=== PATIENT | male | born 1995 | race American Indian/Alaskan Native ===

== ENCOUNTER 2020-05-23 08:55 | Emergency (ER) | payer OTHER ==
[2020-05-23 09:01] VITALS: BP 138/87
--- NOTE | 2020-05-23 10:27 | Emergency Department Report ---
ED ENT HPI - General Chief complaint: Earache Stated complaint: LEFT EAR PAIN Time Seen by Provider: 05/23/20 10:22 Source: patient Mode of arrival: Ambulatory Limitations: No Limitations - History of Present Illness Initial comments: This is a 25-year-old male nontoxic well in appearance with no signs of distress presents to the ED with complaint of left earache. Patient denies any hearing loss. Denies any mastoid tenderness. Agrees to tragus pain. Denies any fever, chills, headache, nausea, vomiting, chest pain or SOB. Denies any other compla ints. Denies any allergies. MD complaint: ear pain -: days(s) Location: L ear Severity: mild Severity scale (0 -10): 8 Quality: aching Consistency: constant Improves with: none Worsens with: none Associated Symptoms: denies: fever, cough, gum swelling, toothache, pain with swallowing, sore throat, tinnitus, hearing loss, discharge from ear, rhinorrhea - Related Data Previous Rx's Medication Instructions Recorded Last Taken Type Amoxicillin/K Clav Tab [Augmentin 1 tab PO Q12HR #20 tab 05/23/20 Unknown Rx 875 mg] Ciprofloxacin HCl/Dexameth 2 drop BID #7.5 ml 05/23/20 Unknown Rx [Ciprodex Otic Suspension] Allergies Allergy/AdvReac Type Severity Reaction Status Date / Time shellfish derived Allergy Shortness Verified 05/23/20 09:01 of Breath ED Dental HPI - General Chief complaint: Earache Stated complaint: LEFT EAR PAIN Time Seen by Provider: 05/23/20 10:22 - Related Data Previous Rx's Medication Instructions Recorded Last Taken Type Amoxicillin/K Clav Tab [Augmentin 1 tab PO Q12HR #20 tab 05/23/20 Unknown Rx 875 mg] Ciprofloxacin HCl/Dexameth 2 drop BID #7.5 ml 05/23/20 Unknown Rx [Ciprodex Otic Suspension] Allergies Allergy/AdvReac Type Severity Reaction Status Date / Time shellfish derived Allergy Shortness Verified 05/23/20 09:01 of Breath ED Review of Systems ROS: Stated complaint: LEFT EAR PAIN Other details as noted in HPI Constitutional: denies: chills, fever Eyes: eye pain. denies: eye discharge, vision change ENT: denies: ear pain, throat pain Respiratory: denies: cough, shortness of breath, wheezing Cardiovascular: denies: chest pain, palpitations Endocrine: no symptoms reported Gastrointestinal: denies: abdominal pain, nausea, diarrhea Genitourinary: denies: urgency, dysuria Musculoskeletal: denies: back pain, joint swelling, arthralgia Skin: denies: rash, lesions Neurological: denies: headache, weakness, paresthesias Psychiatric: denies: anxiety, depression Hematological/Lymphatic: denies: easy bleeding, easy bruising ED Past Medical Hx - Past Medical History Previous Medical History?: No - Surgical History Past Surgical History?: No - Social History Smoking Status: Current Some Day Smoker Substance Use Type: Marijuana - Medications Home Medications: Home Medications Medication Instructions Recorded Confirmed Last Taken Type Amoxicillin/K Clav Tab [Augmentin 1 tab PO Q12HR #20 tab 05/23/20 Unknown Rx 875 mg] Ciprofloxacin HCl/Dexameth 2 drop BID #7.5 ml 05/23/20 Unknown Rx [Ciprodex Otic Suspension] ED Physical Exam - General Limitations: No Limitations General appearance: alert, in no apparent distress - Head Head exam: Present: atraumatic, normocephalic - Expanded ENT Exam Expanded Ear exam: Present: normal external inspection TM/Canal exam: Erythema: Left TM, Bulging: Left TM Mouth exam: Present: normal external inspection Teeth exam: Present: normal inspection Throat exam: Positive: normal inspection - Neck Neck exam: Present: normal inspection, full ROM. Absent: tenderness, meningismus, lymphadenopathy - Extremities Exam Extremities exam: Present: full ROM - Back Exam Back exam: Present: full ROM - Neurological Exam Neurological exam: Present: alert, oriented X3, normal gait - Psychiatric Psychiatric exam: Present: normal affect, normal mood - Skin Skin exam: Present: warm, dry, intact, normal color. Absent: rash - Other Other exam information: Positive tragus tenderness. ED Course Vital Signs 05/23/20 08:59 Temperature 98.9 F Pulse Rate 95 H Respiratory 20 Rate Blood Pressure 138/87 - Reevaluation(s) Reevaluation #1: 05/23/20 10:24 Patient is speaking in full sentences with no signs of distress noted. ED Medical Decision Making - Medical Decision Making Patient was instructed to Follow-up with a primary care doctor in 3-5 days or if symptoms worsen and continue return to emergency room as soon as possible. At time of discharge, the patient does not seem toxic or ill in appearance. No acute signs of distress noted. Patient agrees to discharge treatment plan of care. No further questions noted by the patient. Critical care attestation.: If time is entered above; I have spent that time in minutes in the direct care of this critically ill patient, excluding procedure time. ED Disposition Clinical Impression: Left otitis media Qualifiers: Otitis media type: unspecified Qualified Code(s): H66.92 - Otitis media, unspecified, left ear Left otitis externa Qualifiers: Otitis externa type: unspecified type Chronicity: acute Qualified Code(s): H60.502 - Unspecified acute noninfective otitis externa, left ear Disposition: TO HOME OR SELFCARE Is pt being admited?: No Does the pt Need Aspirin: No Condition: Stable Instructions: Otitis Media (ED), Otitis Externa (ED) Additional Instructions: Follow-up with a primary care doctor in 3-5 days or if symptoms worsen and continue return to emergency room as soon as possible. Prescriptions: Amoxicillin/K Clav Tab [Augmentin 875 mg] 1 tab PO Q12HR #20 tab Ciprofloxacin HCl/Dexameth [Ciprodex Otic Suspension] 2 drop BID #7.5 ml Referrals: PRIMARY CAREMD [Primary Care Provider] - 3-5 Days LIS ALARCON MD [Staff Physician] - 3-5 Days Forms: Work/School Release Form(ED)
== END 2020-05-23 11:50 | disposition home or self-care (01) ==
LOC: ED 08:55
DX: H66.92 Otitis media, unspecified, left ear (principal); H60.502 Unspecified acute noninfective otitis externa, left ear; F17.200 Nicotine dependence, unspecified, uncomplicated; F12.10 Cannabis abuse, uncomplicated
CPT/HCPCS: 99282

== ENCOUNTER 2020-11-02 17:44 | Emergency (ER) | payer OTHER ==
[2020-11-02 18:03] VITALS: BP 114/60
--- NOTE | 2020-11-02 19:24 | Emergency Department Report ---
ED General Adult HPI - General Chief complaint: Extremity Injury, Lower Stated complaint: LT BIG TOE PAIN Time Seen by Provider: 11/02/20 19:04 Source: patient Mode of arrival: Ambulatory Limitations: No Limitations - History of Present Illness Initial comments: Patient 25-year-old male who presents for left great toe pain and swelling with erythema x3 days. Patient has history of ingrown toenail same. States yellow- brown Pus prior to arrival. 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 States frequent ingrown toenails. Pain described 5/10 aching soreness exacerbated by weightbearing. Pain is relieved by nothing tried. There is been no fevers or chills - Related Data Previous Rx's Medication Instructions Recorded Last Taken Type Amoxicillin/K Clav Tab [Augmentin 1 tab PO Q12HR #20 tab 05/23/20 Unknown Rx 875 mg] Ciprofloxacin HCl/Dexameth 2 drop BID #7.5 ml 05/23/20 Unknown Rx [Ciprodex Otic Suspension] cephALEXin [Keflex] 500 mg PO Q8HR 7 Days #21 cap 11/02/20 Unknown Rx traMADoL [Ultram] 50 mg PO Q6HR PRN #12 tablet 11/02/20 Unknown Rx Allergies Allergy/AdvReac Type Severity Reaction Status Date / Time shellfish derived Allergy Shortness Verified 05/23/20 09:01 of Breath ED Review of Systems ROS: Stated complaint: LT BIG TOE PAIN Other details as noted in HPI Constitutional: denies: chills, fever Eyes: denies: eye pain, eye discharge, vision change ENT: denies: ear pain, throat pain Respiratory: denies: cough, shortness of breath, wheezing Cardiovascular: denies: chest pain, palpitations Endocrine: no symptoms reported Gastrointestinal: as per HPI Genitourinary: denies: urgency, dysuria Musculoskeletal: other (left great toe pain and swelling ) Skin: other (left ingrown toe nail ) Neurological: denies: headache, weakness, paresthesias Psychiatric: denies: anxiety, depression Hematological/Lymphatic: as per HPI ED Past Medical Hx - Social History Smoking Status: Never Smoker Substance Use Type: None - Medications Home Medications: Home Medications Medication Instructions Recorded Confirmed Last Taken Type Amoxicillin/K Clav Tab [Augmentin 1 tab PO Q12HR #20 tab 05/23/20 Unknown Rx 875 mg] Ciprofloxacin HCl/Dexameth 2 drop BID #7.5 ml 05/23/20 Unknown Rx [Ciprodex Otic Suspension] cephALEXin [Keflex] 500 mg PO Q8HR 7 Days #21 cap 11/02/20 Unknown Rx traMADoL [Ultram] 50 mg PO Q6HR PRN #12 tablet 11/02/20 Unknown Rx ED Physical Exam - General Limitations: No Limitations General appearance: alert, in no apparent distress - Head Head exam: Present: atraumatic, normocephalic - Eye Eye exam: Present: normal appearance - ENT ENT exam: Present: mucous membranes moist - Neck Neck exam: Present: normal inspection - Respiratory Respiratory exam: Present: normal lung sounds bilaterally. Absent: respiratory distress - Cardiovascular Cardiovascular Exam: Present: regular rate - GI/Abdominal GI/Abdominal exam: Present: soft, normal bowel sounds. Absent: distended, tenderness - Rectal Rectal exam: Present: deferred - Extremities Exam Extremities exam: Present: normal inspection, full ROM, tenderness (left great toe ), normal capillary refill - Expanded Lower Extremity Exam Left Foot/Toe exam: Present: tenderness, swelling, erythema (left great toe nail ). Absent: nail avulsion, subungual hematoma Neuro vascular tendon exam: Absent: pulse deficit, motor deficit, sensory deficit, tendon deficit Gait: Positive: observed and normal - Back Exam Back exam: Present: normal inspection - Neurological Exam Neurological exam: Present: alert - Psychiatric Psychiatric exam: Present: normal affect, normal mood - Skin Skin exam: Present: warm, dry, intact, erythema (left great toe ). Absent: rash ED Course Vital Signs 11/02/20 18:00 Temperature 98.1 F Pulse Rate 73 Respiratory 18 Rate Blood Pressure 114/60 O2 Sat by Pulse 97 Oximetry - I & D Left Toe Type of Procedure: Simple (Left great toe ingrown toenail with erythema and purulent drainage.) Site: left great toe nail Blade Size: 11 I & D Procedure: betadine prep Progress: ite cleaned with Betadine solution anesthesia with 1% lidocaine x2 cc, anesthesia achieved, left lateral nail incision and partial removal nailbed probe with sterile cotton swab toe irrigated with 10 cc sterile saline partial nail removed intact moderate purulent bloody drainage. Sterile dressing applied. Distal pulses intact. Patient given follow-up and wound care instructions. Follow-up primary care provider in 2 to 3 days , all bleeders controlled, patient tolerated procedure with minimal distress. ED Medical Decision Making - Medical Decision Making ingrown toe nail left great, dc to home with rx, pt will follow up with pcp in 2 days for wound check, given wound care instructions, pt dc to home in stable condition at this time. Critical care attestation.: If time is entered above; I have spent that time in minutes in the direct care of this critically ill patient, excluding procedure time. ED Disposition Clinical Impression: Ingrown nail of great toe of left foot, Cellulitis of toe of left foot Disposition: DC-01 TO HOME OR SELFCARE Is pt being admited?: No Does the pt Need Aspirin: No Condition: Stable Instructions: Cellulitis, Adult, Fingernail or Toenail Removal, Adult, Care After Prescriptions: cephALEXin [Keflex] 500 mg PO Q8HR 7 Days #21 cap traMADoL [Ultram] 50 mg PO Q6HR PRN #12 tablet PRN Reason: Pain Referrals: ABDULAZIZ PAEZ MD [Staff Physician] - 3-5 Days Forms: Work/School Release Form(ED) Time of Disposition: 19:26
== END 2020-11-02 19:30 | disposition home or self-care (01) ==
LOC: ED 17:44
DX: L03.032 Cellulitis of left toe (principal); L60.0 Ingrowing nail; Z91.013 Allergy to seafood; Z79.899 Other long term (current) drug therapy

== ENCOUNTER 2020-12-09 20:06 | Emergency (ER) | payer OTHER ==
[2020-12-09 21:09] VITALS: BP 134/84
[2020-12-09] MEDS ORDERED: IBUPROFEN 800 MG TAB PO ONE (21:11)
[2020-12-09] MEDS ORDERED: AMOXICILLIN/K CLAV 875/125MG TAB PO ONE (21:11)
[2020-12-09] MEDS ORDERED: predniSONE 20 MG TAB PO ONE (21:11)
--- NOTE | 2020-12-09 21:19 | Emergency Department Report ---
ED General Adult HPI - General Chief complaint: Sore Throat Stated complaint: THROAT PAIN Time Seen by Provider: 12/09/20 21:11 Source: patient Mode of arrival: Ambulatory Limitations: No Limitations - History of Present Illness Initial comments: Pt is a 25 y/o aam who presents for sore throat x 3 days, hx of same recurring, pt states 5/10 throat pain exacerbated by swallowing, pain is relieved by nothging tride, there is no wheezing, no stridor. pt is tolerating po intake, states fever today of 102. pt denies sob, no cp, no dizziness, no lightheaded. - Related Data Previous Rx's Medication Instructions Recorded Last Taken Type Amoxicillin/K Clav Tab [Augmentin 1 tab PO Q12HR #20 tab 05/23/20 Unknown Rx 875 mg] Ciprofloxacin HCl/Dexameth 2 drop BID #7.5 ml 05/23/20 Unknown Rx [Ciprodex Otic Suspension] cephALEXin [Keflex] 500 mg PO Q8HR 7 Days #21 cap 11/02/20 Unknown Rx traMADoL [Ultram] 50 mg PO Q6HR PRN #12 tablet 11/02/20 Unknown Rx Amoxicillin/Potassium Clav 1 each PO BID 7 Days #14 tablet 12/09/20 Unknown Rx [Augmentin 875-125 Tablet] Ibuprofen [Motrin 800 MG tab] 800 mg PO Q8HR PRN #30 tablet 12/09/20 Unknown Rx predniSONE [Deltasone] 40 mg PO QDAY 5 Days #10 tab 12/09/20 Unknown Rx Allergies Allergy/AdvReac Type Severity Reaction Status Date / Time shellfish derived Allergy Shortness Verified 05/23/20 09:01 of Breath ED Review of Systems ROS: Stated complaint: THROAT PAIN Other details as noted in HPI Constitutional: fever. denies: chills Eyes: as per HPI ENT: throat pain. denies: ear pain, congestion Respiratory: denies: cough, shortness of breath, wheezing Cardiovascular: denies: chest pain, palpitations Endocrine: no symptoms reported Gastrointestinal: denies: abdominal pain, nausea, diarrhea Genitourinary: denies: urgency, dysuria Musculoskeletal: denies: back pain, joint swelling, arthralgia Skin: denies: rash, lesions Neurological: denies: headache, weakness, paresthesias Psychiatric: denies: anxiety, depression Hematological/Lymphatic: denies: easy bleeding, easy bruising ED Past Medical Hx - Past Medical History Previous Medical History?: No - Surgical History Past Surgical History?: No - Social History Smoking Status: Never Smoker Substance Use Type: None - Medications Home Medications: Home Medications Medication Instructions Recorded Confirmed Last Taken Type Amoxicillin/K Clav Tab [Augmentin 1 tab PO Q12HR #20 tab 05/23/20 Unknown Rx 875 mg] Ciprofloxacin HCl/Dexameth 2 drop BID #7.5 ml 05/23/20 Unknown Rx [Ciprodex Otic Suspension] cephALEXin [Keflex] 500 mg PO Q8HR 7 Days #21 cap 11/02/20 Unknown Rx traMADoL [Ultram] 50 mg PO Q6HR PRN #12 tablet 11/02/20 Unknown Rx Amoxicillin/Potassium Clav 1 each PO BID 7 Days #14 tablet 12/09/20 Unknown Rx [Augmentin 875-125 Tablet] Ibuprofen [Motrin 800 MG tab] 800 mg PO Q8HR PRN #30 tablet 12/09/20 Unknown Rx predniSONE [Deltasone] 40 mg PO QDAY 5 Days #10 tab 12/09/20 Unknown Rx ED Physical Exam - General Limitations: No Limitations General appearance: alert, in no apparent distress - Head Head exam: Present: atraumatic, normocephalic - Eye Eye exam: Present: EOMI Pupils: Present: normal accommodation - ENT ENT exam: Present: mucous membranes moist, TM's normal bilaterally, normal external ear exam - Expanded ENT Exam Expanded Throat exam: Positive: tonsillar erythema, tonsillomegaly, tonsillar exudate, other (uvula midline no stridor, no wheezing ). Negative: R peritonsillar mass, L peritonsillar mass - Neck Neck exam: Present: normal inspection, tenderness, full ROM, lymphadenopathy. Absent: meningismus, thyromegaly - Expanded Neck Exam Expanded Neck exam: Absent: midline deformity, anterior neck swelling, carotid bruit, tracheal deviation - Respiratory Respiratory exam: Present: normal lung sounds bilaterally. Absent: respiratory distress, wheezes, stridor, chest wall tenderness - Cardiovascular Cardiovascular Exam: Present: normal rhythm, tachycardia, normal heart sounds - GI/Abdominal GI/Abdominal exam: Present: soft, normal bowel sounds. Absent: distended, tenderness, guarding, rebound, rigid, bruit, hernia - Rectal Rectal exam: Present: deferred - Extremities Exam Extremities exam: Present: normal inspection - Back Exam Back exam: Present: normal inspection, full ROM. Absent: CVA tenderness (R), CVA tenderness (L) - Neurological Exam Neurological exam: Present: alert, oriented X3, CN II-XII intact, normal gait, motor sensory deficit, reflexes normal - Expanded Neurological Exam Expanded Patient oriented to: Present: person, place, time Speech: Present: fluid speech Best Eye Response (Jose): (4) open spontaneously Best Motor Response (Rheems): (6) obeys commands Best Verbal Response (Jose): (5) oriented Jose Total: 15 - Psychiatric Psychiatric exam: Present: normal affect, normal mood - Skin Skin exam: Present: warm, dry, intact, normal color. Absent: rash ED Course Vital Signs 12/09/20 21:06 Temperature 102.2 F H Pulse Rate 119 H Respiratory 18 Rate Blood Pressure 134/84 O2 Sat by Pulse 99 Oximetry ED Medical Decision Making - Medical Decision Making pt declines IV hydrate, exam consistent with strep throat , aiway is patent pt is toleating po intake, give rx, and tx in ed, augmentin, prednisone, ibuprofen, will dc with rx for same , pt will follow up with pcp in 2-3 days, return to ed if symptoms worsen. Critical care attestation.: If time is entered above; I have spent that time in minutes in the direct care of this critically ill patient, excluding procedure time. ED Disposition Clinical Impression: Pharyngitis Qualifiers: Pharyngitis/tonsillitis etiology: unspecified etiology Qualified Code(s): J02.9 - Acute pharyngitis, unspecified Disposition: DC-01 TO HOME OR SELFCARE Is pt being admited?: No Does the pt Need Aspirin: No Condition: Stable Instructions: Pharyngitis Prescriptions: Amoxicillin/Potassium Clav [Augmentin 875-125 Tablet] 1 each PO BID 7 Days #14 tablet predniSONE [Deltasone] 40 mg PO QDAY 5 Days #10 tab Ibuprofen [Motrin 800 MG tab] 800 mg PO Q8HR PRN #30 tablet PRN Reason: pain Referrals: RAJEEV GRAY MD [Staff Physician] - 3-5 Days Forms: Work/School Release Form(ED) Time of Disposition: 21:28
== END 2020-12-09 21:37 | disposition home or self-care (01) ==
LOC: ED 20:06
DX: J02.9 Acute pharyngitis, unspecified (principal); Z79.2 Long term (current) use of antibiotics; Z79.899 Other long term (current) drug therapy; Z91.013 Allergy to seafood
CPT/HCPCS: 99282; J7512

== ENCOUNTER 2021-04-18 20:25 | Emergency (ER) | payer OTHER ==
[2021-04-18 21:15] VITALS: BP 133/71
--- NOTE | 2021-04-18 21:26 | Emergency Department Report ---
- General Chief Complaint: Upper Respiratory Infection Stated Complaint: THROAT PAIN Source: patient Mode of arrival: Ambulatory Limitations: No Limitations - History of Present Illness Initial Comments: Patient is a 26-year-old -Lao male with no past medical history presents to the ED with complaint of acute onset persistent severe sore throat, dysphagia, nasal and sinus congestion for the last 2 days. Patient states that the pain is worse with swallowing any food or drinking any fluids. Patient states that he has been taking [id number] medications for pain with no relief. Patient states that no one else at home is had similar symptoms. Patient denies fever, chills, headache, dizziness, syncope, body aches and pains, nausea and vomiting, cough, change in vision, abdominal pain, diarrhea, back pain or dysphagia. MD Complaint: cough, sore throat, rhinorrhea, nasal congestion, sinus pain -: Sudden, days(s) (2) Severity: severe Severity scale (0 -10): 7 Quality: sharp, aching Consistency: constant Improves With: nothing Worsens With: nothing Associated Symptoms: denies other symptoms, headache, rhinorrhea, nasal congestion, sore throat. denies: fever, chills, diaphoresis, stiff neck, cough, chest pain, shortness of breath, abdominal pain, nausea, vomiting, diarrhea, rash, confusion, weight loss, epistaxis, hoarseness, ear pain, other Treatments Prior to Arrival: none - Related Data Previous Rx's Medication Instructions Recorded Last Taken Type Amoxicillin/K Clav Tab [Augmentin 1 tab PO Q12HR #20 tab 05/23/20 Unknown Rx 875 mg] Ciprofloxacin HCl/Dexameth 2 drop BID #7.5 ml 05/23/20 Unknown Rx [Ciprodex Otic Suspension] cephALEXin [Keflex] 500 mg PO Q8HR 7 Days #21 cap 11/02/20 Unknown Rx traMADoL [Ultram] 50 mg PO Q6HR PRN #12 tablet 11/02/20 Unknown Rx Amoxicillin/Potassium Clav 1 each PO BID 7 Days #14 tablet 12/09/20 Unknown Rx [Augmentin 875-125 Tablet] Azithromycin [Zithromax Z-KARINA] 250 mg PO DAILY #6 tablet 04/18/21 Unknown Rx Ibuprofen [Motrin 800 MG tab] 800 mg PO Q8HR PRN #30 tablet 04/18/21 Unknown Rx Lidocaine Viscous 2% 10 ml PO Q6H PRN #120 ml 04/18/21 Unknown Rx predniSONE [Deltasone] 40 mg PO QDAY 5 Days #10 tab 04/18/21 Unknown Rx Allergies Allergy/AdvReac Type Severity Reaction Status Date / Time shellfish derived Allergy Shortness Verified 05/23/20 09:01 of Breath ED Review of Systems ROS: Stated complaint: THROAT PAIN Other details as noted in HPI Constitutional: denies: chills, fever Eyes: denies: eye pain, eye discharge, vision change ENT: throat pain (Sore throat), congestion. denies: ear pain Respiratory: denies: cough, shortness of breath, wheezing Cardiovascular: denies: chest pain, palpitations Endocrine: no symptoms reported Gastrointestinal: denies: abdominal pain, nausea, diarrhea Genitourinary: denies: urgency, dysuria Musculoskeletal: denies: back pain, joint swelling, arthralgia Skin: denies: rash, lesions Neurological: denies: headache, weakness, paresthesias Psychiatric: denies: anxiety, depression Hematological/Lymphatic: denies: easy bleeding, easy bruising ED Past Medical Hx - Past Medical History Previous Medical History?: No - Surgical History Past Surgical History?: No - Social History Smoking Status: Unknown if ever smoked Substance Use Type: None - Medications Home Medications: Home Medications Medication Instructions Recorded Confirmed Last Taken Type Amoxicillin/K Clav Tab [Augmentin 1 tab PO Q12HR #20 tab 05/23/20 Unknown Rx 875 mg] Ciprofloxacin HCl/Dexameth 2 drop BID #7.5 ml 05/23/20 Unknown Rx [Ciprodex Otic Suspension] cephALEXin [Keflex] 500 mg PO Q8HR 7 Days #21 cap 11/02/20 Unknown Rx traMADoL [Ultram] 50 mg PO Q6HR PRN #12 tablet 11/02/20 Unknown Rx Amoxicillin/Potassium Clav 1 each PO BID 7 Days #14 tablet 12/09/20 Unknown Rx [Augmentin 875-125 Tablet] Azithromycin [Zithromax Z-KARINA] 250 mg PO DAILY #6 tablet 04/18/21 Unknown Rx Ibuprofen [Motrin 800 MG tab] 800 mg PO Q8HR PRN #30 tablet 04/18/21 Unknown Rx Lidocaine Viscous 2% 10 ml PO Q6H PRN #120 ml 04/18/21 Unknown Rx predniSONE [Deltasone] 40 mg PO QDAY 5 Days #10 tab 04/18/21 Unknown Rx ED Physical Exam - General Limitations: No Limitations General appearance: alert, in no apparent distress - Head Head exam: Present: atraumatic, normocephalic, normal inspection - Eye Eye exam: Present: normal appearance, PERRL, EOMI Pupils: Present: normal accommodation - ENT ENT exam: Present: mucous membranes moist, TM's normal bilaterally, normal external ear exam, other (Erythematous oropharynx with bilateral tonsillar white exudates; grossly congested nasal passages) - Neck Neck exam: Present: normal inspection, full ROM, lymphadenopathy (Anterior cervical lymphadenopathy bilaterally). Absent: tenderness - Respiratory Respiratory exam: Present: normal lung sounds bilaterally. Absent: respiratory distress, wheezes, rales, rhonchi, stridor, chest wall tenderness, accessory mu scle use, decreased breath sounds, prolonged expiratory - Cardiovascular Cardiovascular Exam: Present: normal rhythm, tachycardia, normal heart sounds. Absent: systolic murmur, diastolic murmur, rubs, gallop - GI/Abdominal GI/Abdominal exam: Present: soft, normal bowel sounds. Absent: distended, tenderness, guarding, rebound, hyperactive bowel sounds, hypoactive bowel sounds, organomegaly - Extremities Exam Extremities exam: Present: normal inspection, full ROM, normal capillary refill - Back Exam Back exam: Present: normal inspection, full ROM. Absent: tenderness, CVA tenderness (R), CVA tenderness (L), muscle spasm, paraspinal tenderness, vertebral tenderness - Neurological Exam Neurological exam: Present: alert, oriented X3, CN II-XII intact, normal gait, reflexes normal - Psychiatric Psychiatric exam: Present: normal affect, normal mood - Skin Skin exam: Present: warm, dry, intact, normal color. Absent: rash ED Course Vital Signs 04/18/21 21:13 Temperature 98.2 F Pulse Rate 102 H Blood Pressure 133/71 O2 Sat by Pulse 96 Oximetry ED Medical Decision Making - Medical Decision Making This is a 26-year-old -Lao male with no past medical history presents to the ED with complaint of acute onset persistent severe sore throat, dysphagia, nasal and sinus congestion for the last 2 days. Patient states that the pain is worse with swallowing any food or drinking any fluids. Patient states that he has been taking [id number] medications for pain with no relief. Patient states that no one else at home is had similar symptoms. In the ED, patient is alert and oriented x3 and is not in any distress. Patient was discharged home on pain medications based on the history and physical exam findings of suspected strep pharyngitis and upper respiratory infection. Patient was advised to follow-up with his primary care physician in 7 to 10 days for reevaluation. Patient advised return to the ED immediately if symptoms get worse. - Differential Diagnosis Pharyngitis; URI; viral syndrome; sinusitis; Critical care attestation.: If time is entered above; I have spent that time in minutes in the direct care of this critically ill patient, excluding procedure time. ED Disposition Clinical Impression: Acute upper respiratory infection, Acute bacterial pharyngitis Disposition: TO HOME OR SELFCARE Is pt being admited?: No Does the pt Need Aspirin: No Condition: Stable Instructions: Upper Respiratory Infection, Adult, [id number]-[id number], Pharyngitis, [id number] Additional Instructions: Take medication with food, drink plenty of fluids and follow-up with your primary care physician in 5 to 7 days for reevaluation. Return to the ED immediately if symptoms get worse. Prescriptions: predniSONE [Deltasone] 40 mg PO QDAY 5 Days #10 tab Lidocaine Viscous 2% 10 ml PO Q6H PRN #120 ml PRN Reason: Sore Throat Ibuprofen [Motrin 800 MG tab] 800 mg PO Q8HR PRN #30 tablet PRN Reason: pain Azithromycin [Zithromax Z-KARINA] 250 mg PO DAILY #6 tablet Referrals: [facility] [Provider Group] - 3-5 Days Time of Disposition: 21:28 Print Language: KITTITIAN
== END 2021-04-18 22:00 | disposition home or self-care (01) ==
LOC: ED 20:25
DX: J06.9 Acute upper respiratory infection, unspecified (principal); J02.8 Acute pharyngitis due to other specified organisms; B96.89 Other specified bacterial agents as the cause of diseases classified elsewhere; Z79.899 Other long term (current) drug therapy; Z91.013 Allergy to seafood
CPT/HCPCS: 99282

== ENCOUNTER 2021-04-28 10:49 | Emergency (ER) | payer OTHER ==
[2021-04-28 14:00] VITALS: BP 127/71
--- NOTE | 2021-04-28 16:15 | Emergency Department Report ---
ED ENT HPI - General Chief complaint: Sore Throat Stated complaint: SORE THROAT Time Seen by Provider: 04/28/21 13:51 Source: patient Mode of arrival: Ambulatory Limitations: No Limitations - History of Present Illness Initial comments: This is a 26-year-old male nontoxic, well nourished in appearance, no acute signs of distress presents to the ED with c/o of acute on chronic intermittent sore throat x2 weeks. Patient was recently treated with azithromycin which stated symptoms improve and then returned couple days ago. Patient stated he has only been sexually active with his and was about last month. Patient stated his has been recently tested for gonorrhea chlamydia (which was negative) due to giving several weeks ago. Patient denies any other sexual partners. Patient describes pain as aching intermittently and worse with swallowing. Patient denies any fever, chills, headache, stiff neck, nausea, vomiting, chest pain, shortness of breath, numbness or tingling. Patient denies any drooling or hoarseness. Patient denies any allergies or significant past medical history. MD complaint: sore throat -: week(s) Location: throat Severity: mild Severity scale (0 -10): 3 Quality: aching Consistency: intermittent Improves with: none Worsens with: swallowing Associated Symptoms: pain with swallowing, sore throat. denies: fever, cough, gum swelling, toothache, tinnitus, hearing loss, discharge from ear, rhinorrhea - Related Data Previous Rx's Medication Instructions Recorded Last Taken Type Amoxicillin/K Clav Tab [Augmentin 1 tab PO Q12HR #20 tab 05/23/20 Unknown Rx 875 mg] Ciprofloxacin HCl/Dexameth 2 drop BID #7.5 ml 05/23/20 Unknown Rx [Ciprodex Otic Suspension] cephALEXin [Keflex] 500 mg PO Q8HR 7 Days #21 cap 11/02/20 Unknown Rx traMADoL [Ultram] 50 mg PO Q6HR PRN #12 tablet 11/02/20 Unknown Rx Amoxicillin/Potassium Clav 1 each PO BID 7 Days #14 tablet 12/09/20 Unknown Rx [Augmentin 875-125 Tablet] Azithromycin [Zithromax Z-KARINA] 250 mg PO DAILY #6 tablet 04/18/21 Unknown Rx Ibuprofen [Motrin 800 MG tab] 800 mg PO Q8HR PRN #30 tablet 04/18/21 Unknown Rx Lidocaine Viscous 2% 10 ml PO Q6H PRN #120 ml 04/18/21 Unknown Rx predniSONE [Deltasone] 40 mg PO QDAY 5 Days #10 tab 04/18/21 Unknown Rx Nystas/Diphen/Xyl Visc/Mylanta 15 ml MM Q12H PRN 5 Days #1 bottle 04/28/21 Unknown Rx [Magic Mouthwash] Allergies Allergy/AdvReac Type Severity Reaction Status Date / Time shellfish derived Allergy Shortness Verified 04/28/21 12:04 of Breath ED Dental HPI - General Chief complaint: Sore Throat Stated complaint: SORE THROAT Time Seen by Provider: 04/28/21 13:51 Source: patient Mode of arrival: Ambulatory Limitations: No Limitations - Related Data Previous Rx's Medication Instructions Recorded Last Taken Type Amoxicillin/K Clav Tab [Augmentin 1 tab PO Q12HR #20 tab 05/23/20 Unknown Rx 875 mg] Ciprofloxacin HCl/Dexameth 2 drop BID #7.5 ml 05/23/20 Unknown Rx [Ciprodex Otic Suspension] cephALEXin [Keflex] 500 mg PO Q8HR 7 Days #21 cap 11/02/20 Unknown Rx traMADoL [Ultram] 50 mg PO Q6HR PRN #12 tablet 11/02/20 Unknown Rx Amoxicillin/Potassium Clav 1 each PO BID 7 Days #14 tablet 12/09/20 Unknown Rx [Augmentin 875-125 Tablet] Azithromycin [Zithromax Z-KARINA] 250 mg PO DAILY #6 tablet 04/18/21 Unknown Rx Ibuprofen [Motrin 800 MG tab] 800 mg PO Q8HR PRN #30 tablet 04/18/21 Unknown Rx Lidocaine Viscous 2% 10 ml PO Q6H PRN #120 ml 04/18/21 Unknown Rx predniSONE [Deltasone] 40 mg PO QDAY 5 Days #10 tab 04/18/21 Unknown Rx Nystas/Diphen/Xyl Visc/Mylanta 15 ml MM Q12H PRN 5 Days #1 bottle 04/28/21 Unknown Rx [Magic Mouthwash] Allergies Allergy/AdvReac Type Severity Reaction Status Date / Time shellfish derived Allergy Shortness Verified 04/28/21 12:04 of Breath ED Review of Systems ROS: Stated complaint: SORE THROAT Other details as noted in HPI Comment: All other systems reviewed and negative Constitutional: denies: chills, fever Eyes: denies: eye pain, eye discharge, vision change ENT: denies: ear pain, throat pain Respiratory: denies: cough, shortness of breath, wheezing Cardiovascular: denies: chest pain, palpitations Endocrine: no symptoms reported Gastrointestinal: denies: abdominal pain, nausea, diarrhea Genitourinary: denies: urgency, dysuria Musculoskeletal: denies: back pain, joint swelling, arthralgia Skin: denies: rash, lesions Neurological: denies: headache, weakness, paresthesias Psychiatric: denies: anxiety, depression Hematological/Lymphatic: denies: easy bleeding, easy bruising ED Past Medical Hx - Past Medical History Previous Medical History?: No - Surgical History Past Surgical History?: No - Social History Smoking Status: Never Smoker Substance Use Type: None - Medications Home Medications: Home Medications Medication Instructions Recorded Confirmed Last Taken Type Amoxicillin/K Clav Tab [Augmentin 1 tab PO Q12HR #20 tab 05/23/20 Unknown Rx 875 mg] Ciprofloxacin HCl/Dexameth 2 drop BID #7.5 ml 05/23/20 Unknown Rx [Ciprodex Otic Suspension] cephALEXin [Keflex] 500 mg PO Q8HR 7 Days #21 cap 11/02/20 Unknown Rx traMADoL [Ultram] 50 mg PO Q6HR PRN #12 tablet 11/02/20 Unknown Rx Amoxicillin/Potassium Clav 1 each PO BID 7 Days #14 tablet 12/09/20 Unknown Rx [Augmentin 875-125 Tablet] Azithromycin [Zithromax Z-KARINA] 250 mg PO DAILY #6 tablet 04/18/21 Unknown Rx Ibuprofen [Motrin 800 MG tab] 800 mg PO Q8HR PRN #30 tablet 04/18/21 Unknown Rx Lidocaine Viscous 2% 10 ml PO Q6H PRN #120 ml 04/18/21 Unknown Rx predniSONE [Deltasone] 40 mg PO QDAY 5 Days #10 tab 04/18/21 Unknown Rx Nystas/Diphen/Xyl Visc/Mylanta 15 ml MM Q12H PRN 5 Days #1 bottle 04/28/21 Unknown Rx [Magic Mouthwash] ED Physical Exam - General Limitations: No Limitations General appearance: alert, in no apparent distress - Head Head exam: Present: atraumatic, normocephalic - Eye Eye exam: Present: normal appearance - Expanded ENT Exam Expanded Ear exam: Present: normal external inspection Mouth exam: Present: normal external inspection, tongue normal. Absent: drooling, trismus, muffled voice Teeth exam: Present: normal inspection Throat exam: Positive: tonsillar erythema, other (uvula midline. No abscess or swelling.). Negative: tonsillomegaly, tonsillar exudate, R peritonsillar mass, L peritonsillar mass - Neck Neck exam: Present: normal inspection, full ROM. Absent: lymphadenopathy - Respiratory Respiratory exam: Absent: respiratory distress - Cardiovascular Cardiovascular Exam: Present: regular rate - Extremities Exam Extremities exam: Present: normal inspection, full ROM - Back Exam Back exam: Present: normal inspection, full ROM - Neurological Exam Neurological exam: Present: alert, oriented X3, normal gait - Psychiatric Psychiatric exam: Present: normal affect, normal mood - Skin Skin exam: Present: warm, dry, intact, normal color. Absent: rash ED Course Vital Signs 04/28/21 04/28/21 12:08 13:58 Temperature 98.4 F Pulse Rate 91 H 89 Respiratory 20 19 Rate Blood Pressure 135/80 Blood Pressure 127/71 [Left] O2 Sat by Pulse 95 98 Oximetry - Reevaluation(s) Reevaluation #1: 04/28/21 16:24 Patient is speaking in full sentences with no signs of distress noted. ED Medical Decision Making - Lab Data Lab Results 04/28/21 04/28/21 Range/Units 13:52 13:57 Monoscreen Negative (Negative) Group A Strep Rapid Negative (Negative) - Medical Decision Making This is a 26-year-old male that presents with viral pharyngitis. Patient is stable was examined by me. There is no drooling. No tonsillar abscess noted. Uvula is midline. I did send a gonorrhea chlamydia oropharynx culture due to symptoms occurring the past 2 weeks. Patient was instructed to return in 3 to 5 days for gonorrhea chlamydia oropharynx swab results. Vital signs are stable. Patient is not febrile and normal heart rate. Patient was instructed to Follow-up with a primary care doctor in 3-5 days or if symptoms worsen and continue return to emergency room as soon as possible. At time of discharge, the patient does not seem toxic or ill in appearance. No acute signs of distress noted. Patient agrees to discharge treatment plan of care. No further questions noted by the patient. Critical care attestation.: If time is entered above; I have spent that time in minutes in the direct care of this critically ill patient, excluding procedure time. ED Disposition Clinical Impression: Viral pharyngitis Disposition: TO HOME OR SELFCARE Is pt being admited?: No Does the pt Need Aspirin: No Condition: Stable Additional Instructions: Follow-up with a primary care/ENT doctor in 3-5 days or if symptoms worsen and continue return to emergency room as soon as possible. Prescriptions: Nystas/Diphen/Xyl Visc/Mylanta [Magic Mouthwash] 15 ml MM Q12H PRN 5 Days #1 bottle PRN Reason: sore throat Referrals: PRIMARY CAREMD [Primary Care Provider] - 3-5 Days LIS ALARCON MD [Staff Physician] - 3-5 Days SURY BROOKE MD [Referring] - 3-5 Days Forms: Work/School Release Form(ED) Time of Disposition: 16:26
== END 2021-04-28 16:32 | disposition home or self-care (01) ==
LOC: ED 10:49
DX: J02.8 Acute pharyngitis due to other specified organisms (principal); B97.89 Other viral agents as the cause of diseases classified elsewhere; Z79.1 Long term (current) use of non-steroidal anti-inflammatories (NSAID); Z79.2 Long term (current) use of antibiotics; Z79.899 Other long term (current) drug therapy; Z91.013 Allergy to seafood
CPT/HCPCS: 36415; 86308; 87116; 87430